=== PATIENT | female | born 1990 | race Caucasian/White ===

== ENCOUNTER → 2019-04-20 | Outpatient (CLI) | payer BC ==
[~2019-04-20] MED LIST: BENZ100C18 PO; CEFD300C3 PO
--- NOTE | 2019-04-20 10:41 | Diagnostic Imaging Report ---
PROCEDURE: US Gallbladder. TECHNIQUE: Multiple real-time grayscale images were obtained over the right upper quadrant in various projections. INDICATION: Right upper quadrant pain. Patient is currently 13 weeks . FINDINGS: Liver is normal in size without focal lesions. There is no biliary ductal dilatation. Common bile duct measures 4 mm. There is no cholelithiasis, gallbladder wall thickening or pericholecystic fluid. The tail of the pancreas is obscured by bowel gas. The visualized portions of pancreas are unremarkable. Right kidney is normal. There is no ascites. IMPRESSION: Unremarkable right upper quadrant ultrasound. Dictated by: Dictated on workstation # [id number]
== END ==
LOC: RAD 09:04
PROVIDERS: ATTEND Obstetrics & Gynecology
DX: R10.11 Right upper quadrant pain (principal)
CPT/HCPCS: 76705

== ENCOUNTER 2019-05-01 13:12 | Day surgery (SDC) | payer BC ==
[2019-05-01] VITALS (20 sets, daily range): BP systolic 52–148; BP diastolic 0–106
[~2019-05-01] VITALS: Ht 167.6 cm; Wt 62.6 kg
--- NOTE | 2019-05-01 13:00 | NUR ---
MICHAEL PARRISH admitted to [facility] room 3304-1, for procedure DILATION AND CURETTAGE with an admitting diagnosis of , on 05/01/19 via , accompanied by . MICHAEL PARRISH oriented to area. Call light given and gown provided. Belongings to . Admission assessment and physical assessment complete.
--- NOTE | 2019-05-01 13:15 | NUR ---
INITIAL ASSESSMENT COMPLETED, VSS, SEE INTERVENTIONS FOR DETAILED ASSESSMENTS, PLAN OF CARE EXPLAINED, QUESTIONS ANSWERED, S/O AT SIDE, BOTH PARENTS TEARFUL. NO DISTRESS NOTED. WILL MONITOR.
[2019-05-01] MEDS ORDERED: LACTATED RINGERS 1,000 ML IV ONE ×2 (13:25→19:01)
[2019-05-01] MEDS: LACTATED RINGERS 1,000 ML IV SCH ×4 (13:40→20:20)
--- NOTE | 2019-05-01 13:40 | NUR ---
IV STARTED BY LUANNE CHARLES.
--- NOTE | 2019-05-01 14:15 | NUR ---
ANESTHESIA HERE VISITING WITH PT AND S/O.
[2019-05-01] MEDS ORDERED: PREN1TAB79 PO (14:23)
[2019-05-01 14:25] LABS: BASOPHILS % (AUTO) 0 % (0-10); EOSINOPHILS # (AUTO) 0.1 10^3/uL (0.0-0.3); EOSINOPHILS % (AUTO) 1 % (0-10); HEMATOCRIT 36 % (35-52); HEMOGLOBIN 12.3 G/DL (11.5-16.0); LYMPHOCYTES # (AUTO) 1.6 X 10^3 (1.0-4.0); LYMPHOCYTES % (AUTO) 19 % (12-44); MEAN CORPUSCULAR HEMOGLOBIN 30 PG (25-34); MEAN CORPUSCULAR HGB CONC 34 G/DL (32-36); MEAN CORPUSCULAR VOLUME 89 FL (80-99); MONOCYTES # (AUTO) 0.4 X 10^3 (0.0-1.0); MONOCYTES % (AUTO) 5 % (0-12); NEUTROPHILS # (AUTO) 6.5 X 10^3 (1.8-7.8); NEUTROPHILS % (AUTO) 76 % (42-75); PLATELET COUNT 267 10^3/uL (130-400); RED CELL DISTRIBUTION WIDTH 13.1 % (10.0-14.5); WHITE BLOOD COUNT 8.6 10^3/uL (4.3-11.0)
--- NOTE | 2019-05-01 15:30 | NUR ---
THIS RN VISITED WITH BOTH PT/SO EXTENSIVELY ABOUT DILATION AND CURETTAGE PROCEDURE, QUESTIONS ANSWERED. OR CONSENT SIGNED. VSS.
--- NOTE | 2019-05-01 16:00 | NUR ---
DR DAMICO CALLED NEW ORDERS RECEIVED.
--- NOTE | 2019-05-01 16:15 | NUR ---
SONO HERE FOR CONFIRMATION OF DEMISE, CONFIRMED BY SONO, PAPERWORK EXPLAINED WITH PARENTS ABOUT CARE OF REMAINS, PARENTS DECIDED ON PLAN AND PAPERWORK SIGNED AND ON CHART.
[2019-05-01] MEDS ORDERED: HYDROmorphone 2 MG/ML VIAL (DILAUDID) ONE (16:36)
[2019-05-01] MEDS ORDERED: MEPERIDINE (DEMEROL) INJ 50 MG/ML ONE (16:36)
[2019-05-01] MEDS ORDERED: ONDANSETRON 4 MG/2 ML (SDV) Z0FRAN ONE ×3 (16:37→18:47)
[2019-05-01] MEDS ORDERED: PROMETHAZINE INJ 25 MG/ML (PHENERGAN) AMP ONE (16:37)
[2019-05-01] MEDS ORDERED: morphine INJ 10 MG/ML 1ML (SYR OR VIAL) ONE (16:37)
[2019-05-01] MEDS ORDERED: ceFAZolin INJECTION 1,000 MG in WATER (STERILE) FOR INJECTION 10 ML IV ONE (17:00)
[2019-05-01] MEDS ORDERED: KETOROLAC 15 MG/ML VIAL IVP NR (17:00)
[2019-05-01] MEDS ORDERED: KETOROLAC 15 MG/ML VIAL ONE (17:00)
--- NOTE | 2019-05-01 17:00 | NUR ---
PT C/O HEADACHE, CALLED, NEW ORDERS RECEIVED.
--- NOTE | 2019-05-01 17:10 | NUR ---
TORADOL 15MG GIVEN SIVP. DR DAMICO HERE.
[2019-05-01] MEDS ORDERED: LIDOCAINE PF 2% 5 ML (XYLOCAINE) VIAL ONE (17:14)
[2019-05-01] MEDS ORDERED: fentaNYL INJECTION 100 MCG/2 ML AMP ONE (17:14)
[2019-05-01] MEDS ORDERED: proPOfol 200 MG/20 ML (DIPRIVAN) VIAL IV ONE (17:14)
--- NOTE | 2019-05-01 17:14 | History & Physical ---
History and Physical Date Seen by Provider: May 01, 2019 Time Seen by Provider: 17:09 This patient is a 29-year-old G1 white female with an EDC of 12 2219 putting her at 15-1/7 weeks' gestation on this date. No heart rate was detectable either by Doppler or by ultrasound. This is been reconfirmed on second ultrasound. Viable confirmed as early as 7 weeks gestation reconfirmed at 10-5/7 weeks gestation when lab work obtained that were all normal. Patient was given options for management of demise including observation versus recheck in 1 week versus proceed with D&E. After confirmation of the baby demise she elected to proceed with D&E. Surgical risks complications recover and follow-up were fully discussed with the patient. She accepts those risks and is ready to proceed. Allergies are none Medications are vitamins Medical surgical social history are per the patient's H&P November 14, 2018 HEENT exam is normal Neck is supple no lymphadenopathy no thyromegaly Abdomen is soft nontender nondistended extremities show no clubbing cyanosis. There is no Homans sign. Pelvic exam is deferred Laboratory Tests Test 05/01/19 13:40 Range/Units White Blood Count 8.6 4.3-11.0 10^3/uL Red Blood Count 4.06 L 4.35-5.85 10^6/uL Hemoglobin 12.3 11.5-16.0 G/DL Hematocrit 36 35-52 % Mean Corpuscular Volume 89 80-99 FL Mean Corpuscular Hemoglobin 30 25-34 PG Mean Corpuscular Hemoglobin Concent 34 32-36 G/DL Red Cell Distribution Width 13.1 10.0-14.5 % Platelet Count 267 130-400 10^3/uL Mean Platelet Volume 10.0 7.4-10.4 FL Neutrophils (%) (Auto) 76 H 42-75 % Lymphocytes (%) (Auto) 19 12-44 % Monocytes (%) (Auto) 5 0-12 % Eosinophils (%) (Auto) 1 0-10 % Basophils (%) (Auto) 0 0-10 % Neutrophils # (Auto) 6.5 1.8-7.8 X 10^3 Lymphocytes # (Auto) 1.6 1.0-4.0 X 10^3 Monocytes # (Auto) 0.4 0.0-1.0 X 10^3 Eosinophils # (Auto) 0.1 0.0-0.3 10^3/uL Basophils # (Auto) 0.0 0.0-0.1 10^3/uL Patient's blood type is Rh+ from lab work performed in my clinic Assessment and plan demise at 15 weeks gestation. Sonographic estimated gestational age in my clinic was 13 weeks. Planproceed with D&E in the operating room. Missed / demise at 15-1/7 weeks gestation Allergies and Home Medications Allergies Coded Allergies: No Known Drug Allergies (Unverified , 06/07/16) Home Medications Vit W-Ca,Fe,FA(<1 mg) 1 Each Tablet, 1 TAB PO DAILY, (Reported) Patient Home Medication List Home Medication List Reviewed: Yes ANAMARIA DAMICO MD May 01, 2019 17:14
[2019-05-01] MEDS ORDERED: PROMETHAZINE INJ 25 MG/ML (PHENERGAN) AMP IM ONE (17:15)
[2019-05-01] MEDS ORDERED: oxyCODONE/APAP 5/325MG (PERCOCET 5) TABLET PO PRN (17:15)
[2019-05-01] MEDS ORDERED: ONDANSETRON 4 MG/2 ML (SDV) Z0FRAN IVP PRN (17:15)
[2019-05-01] MEDS ORDERED: KETOROLAC 30 MG/ML VIAL IVP ONE (17:15)
[2019-05-01] MEDS ORDERED: MIDAZOLAM 2 MG/2 ML (VERSED) VIAL ONE (17:15)
[2019-05-01] MEDS ORDERED: D5 LR IV SOLUTION 1,000 ML IV SCH (17:15)
[2019-05-01] MEDS ORDERED: SEVOFLURANE (ULTANE) 15 ML INHAL SOLN ONE ×3 (17:16→18:33)
[2019-05-01] MEDS ORDERED: IBUP-1780 PO (17:18)
[2019-05-01] MEDS ORDERED: OXYC1TAB87 PO (17:18)
--- NOTE | 2019-05-01 17:20 | Discharge Instructions ---
Discharge Instructions Discharge Medications New, Converted or Re-Newed RX: RX on Chart Patient Instructions Patient Instructions: As directed Return to The Hospital For: As directed Activity & Diet Discharge Diet: No Restrictions Activity as Tolerated: No Orders-Post D/C & Referrals Follow Up Appt: Call to make follow up appt. for patient in 2 weeks. Activity: Rest for 24 hours, than as tolerated. Please call in RX to patient pharmacy. Diet: As tolerated-Clear Liquids only if nauseated. may shower or tub bathe as desired. No driving for 24 hours, no alcoholic beverages for 24 hours, and nothing per vagina (no tampons, douching, or intercourse) for 2 weeks. Patient to return to the clinic as soon as possible for: Temperature greater than 101F, Severe Pain, Foul discharge from incision or vagina, Excessive Blee ding (more than a period). ANAMARIA DAMICO MD May 01, 2019 17:20
[2019-05-01] MEDS ORDERED: DEXAMETHASONE 10 MG/ML (DECADRON) 1 ML VIAL ONE (18:33)
[2019-05-01] MEDS ORDERED: KETOROLAC 30 MG/ML VIAL ONE (18:34)
[2019-05-01] MEDS ORDERED: PHENYLEPHRINE 100 MCG/ML 10 ML (ANESTHESIA) SYR ONE (18:35)
[2019-05-01] MEDS ORDERED: MEPERIDINE (DEMEROL) INJ 50 MG/ML IVP ONE (19:15)
[2019-05-01] MEDS ORDERED: morphine INJ 10 MG/ML 1ML (SYR OR VIAL) IVP ONE (19:15)
[2019-05-01] MEDS ORDERED: PROMETHAZINE INJ 25 MG/ML (PHENERGAN) AMP IVP ONE (19:15)
[2019-05-01 19:24] LABS: MEAN PLATELET VOLUME 9.5 FL (7.4-10.4); RED CELL DISTRIBUTION WIDTH 13.2 % (10.0-14.5); WHITE BLOOD COUNT 15.2 10^3/uL (4.3-11.0)
[2019-05-01] MEDS: MEPERIDINE (DEMEROL) INJ 100 MG/ML IM ONE ×2 (19:32→21:35)
--- NOTE | 2019-05-01 19:50 | Diagnostic Imaging Report ---
INDICATION: demise. TECHNIQUE: Multiple real-time grayscale images were obtained over the gravid uterus. COMPARISON: None. FINDINGS: There is an intrauterine in a cephalic presentation. Placenta is anterior. There appears to be normal volume amniotic fluid. There are, however, no heart tones detected. Gestational age is 15 weeks 0 days. IMPRESSION: Findings compatible with intrauterine demise. Biometrical measurements are as follows: Biparietal 2.86 cm, age 15 weeks 2 days. Head circumference 10.42 cm, age 15 weeks 0 days. Abdominal circumference 8.01 cm, age 14 weeks 3 days. Femur length 1.63 cm, age 14 weeks 6 days. Sonographic estimate age: 15 weeks 0 days. Sonographic estimated date of delivery: 10/23/2019. Estimated Weight: 103 gm (+/- 15 gm). LMP percentile: 13%. heart rate: 0 beats per minute. number: 1 of 1. Dictated by: Dictated on workstation # [id number]
--- NOTE | 2019-05-01 20:00 | NUR ---
PT TO UNIT BY BED FROM PACU. PT ALERT AND ORIENTED. DENIES ANY PAIN.
--- NOTE | 2019-05-01 20:30 | NUR ---
PT REPORTS FEELING THE NEED TO VOID. ASSISTANCE BY PACU NURSE TO GET PT UP TO BATHROOM. UPON TRANSFERRING PT TO TOILET, PT REPORTS FEELING LIGHTHEADED AND HAVING RINGING IN EARS PRIOR TO PASSING OUT. PT WAS STABILIZED BY THIS TO PREVENT FALLING WHILE 2ND RN GOES FOR W/C AND ADDITIONAL HELP. AFTER RETURNING WITH W/C PT MOVED TO W/C WITH ASSIST X3 AND PROMPTLY TAKEN TO BED. ASSIST X3 WITH MOVING TO BED. VS OBTAINED. MILD HYPOTENSION WITH NO TACHYCARDIA NOTED. PT PLACED IN [place] D/T SLOW RETURN OF ALERTNESS. 02 PLACED BY NON-REBREATHER. AFTER 2-3 MIN PT RETURNS TO RESPONSIVENESS. VAGINAL BLEEDING AT THIS TIME LIGHT.
--- NOTE | 2019-05-01 20:37 | NUR ---
called with update concerning syncope episode, vital signs. Order for repeat cbc in AM received.
--- NOTE | 2019-05-01 21:00 | NUR ---
PT SITTING UP IN BED EATING JELLO. COLOR HAS BEGIN TO RETURN TO FACE, HOWEVER LIPS REMAIN VERY PALE. PT DID NOT VOID ON LAST TRIP UP, AND STILL FEELS IF SHE NEEDS TO VOID. PT TAKEN BY W/C THIS TIME TO TOILET WITH ASSIST X3. PT TRANSFERRED TO TOILET AND BECOMES PALE. VOIDING INITIATED AND PT BEGINS TO GET LIGHTHEADED WITH RINGING EARS AGAIN. PT IMMEDIATELY TRANSFERRED TO W/C WITH VERY SHORT PERIOD OF BECOMING UNCONSCIOUS. PT IMMEDIATELY TO BED WITH ASSIST X3. LAID FLAT AND PT RETURNS TO RESPONSIVENESS. O2 ON BY NC AT 1L. WILL PROCEED WITH USE OF BED VICENTE FOR VOIDING.
--- NOTE | 2019-05-01 22:30 | NUR ---
ATTEMPTED BED VICENTE USE WITH NO SUCCESS. WILL OBTAIN BEDSIDE COMMODE.
--- NOTE | 2019-05-01 22:45 | NUR ---
BEDSIDE COMMODE OBTAINED. PT ASSISTED TO COMMODE TO VOID. PT BECAME SLIGHTLY WEAK AND LIGHTHEADED, BUT WAS ABLE TO VOID AND RETURN TO BED BEFORE LOSING CONSCIOUSNESS. WILL CONT TO MONITOR CLOSELY.
[2019-05-02] VITALS: BP 91/39
--- NOTE | 2019-05-02 | NUR ---
EASIER TRANSFER TO BEDSIDE COMMODE. PT AGAIN VOIDS WITHOUT DIFFICULTY. VAGINAL BLEEDING REMAINS LIGHT. PT SLIGHTLY PALE WITH RETURN TO BED, BUT REPORTS THIS TRIP UP BEING BETTER. WILL CONT TO MONITOR.
--- NOTE | 2019-05-02 02:30 | NUR ---
PT RESTING VERY SOUNDLY. NO S/S OF DISTRESS OR DISCOMFORT NOTED. RESP EVEN AND UNLABORED.
--- NOTE | 2019-05-02 04:00 | NUR ---
PT AWAKENED WITH NEED TO VOID. PT TO BEDSIDE COMMODE NEARLY INDEPENDENTLY. RETURNED TO BED WITHOUT DIFFICULTY.
[2019-05-02 05:00] VITALS: BP 93/47
--- NOTE | 2019-05-02 05:15 | NUR ---
PT NEED TO VOID. WILL ASSIST AMB TO BATHROOM. PT AMB WELL AND REPORTS NOT FEELING LIGHTHEADED OR DIZZY. NO BLEEDING NOTED TO PAD. PT RETURNED TO BED AMBULATORY. PT REPORTS FEELING FAIR PHYSICALLY AND FELT THE TRIP TO THE BR WENT WELL. UPON RETURNING TO BED PT BECOMES VERY TEARFUL. VERY SUPPORTIVE. PT VERBALIZES NO NEEDS FROM NURSE, SO ALLOWED TO HAVE PRIVATE TIME WITH . ASKED TO CALL IF IT IS WANTED FOR NURSE TO RETURN.
[2019-05-02 05:34] LABS: BASOPHILS % (AUTO) 0 % (0-10); EOSINOPHILS % (AUTO) 0 % (0-10); HEMATOCRIT 21 % (35-52); LYMPHOCYTES # (AUTO) 0.7 X 10^3 (1.0-4.0); LYMPHOCYTES % (AUTO) 10 % (12-44); MEAN CORPUSCULAR HEMOGLOBIN 30 PG (25-34); MEAN CORPUSCULAR HGB CONC 34 G/DL (32-36); MEAN CORPUSCULAR VOLUME 90 FL (80-99); MEAN PLATELET VOLUME 9.2 FL (7.4-10.4); MONOCYTES # (AUTO) 0.3 X 10^3 (0.0-1.0); MONOCYTES % (AUTO) 5 % (0-12); NEUTROPHILS % (AUTO) 86 % (42-75); PLATELET COUNT 240 10^3/uL (130-400); RED CELL DISTRIBUTION WIDTH 12.9 % (10.0-14.5)
--- NOTE | 2019-05-02 06:55 | OPERATIVE REPORT ---
DATE OF SERVICE: 05/01/2019 PREOPERATIVE DIAGNOSIS: A 15-week demise. POSTOPERATIVE DIAGNOSIS: A 15-week demise. OPERATIVE PROCEDURE: D and E. OPERATIVE DESCRIPTION: With the patient in the supine position under satisfactory general anesthesia, she was repositioned in dorsal lithotomy position in the [facility] stirrups and prepped and draped in the usual fashion for vaginal surgery. The patient had voided prior to coming to the operating room. Weighted speculum placed in the posterior fornix of vagina, cervix exposed and grasped anteriorly with single tooth tenaculum. Uterus was sounded to 16 cm with uterine sound. The cervix was then serially dilated with Hegar dilators to #13 Hegar. A #12 straight suction curette was then used to remove relatively large amount of trophoblastic as well as the appearing tissue and some blood clots and amniotic fluid. Ring forceps were used to remove the balance of the fetus and fragments. Multiple fragments were identified including the calvarium, chest cavity/ribs, extremities, internal organs, and multiple fragments of tissue that were not identified. Pieces were extracted individually. Periodically, the suction curettage was used to remove the blood clot that was accumulating. Additional fragments of tissue were removed as well. The tissue had a fong to atkinson appearance consistent with demise at least more than a few days prior to the discovery of the demise. The ultrasound was then used for transabdominal assessment of the uterus which appeared empty, and no further distinct tissue was apparent. The straight suction curette was used to remove some additional fragments of tissue, blood and clot. Sharp curettage was repeated and then vacuum curettage was performed. It was clear that the uterine cavity was empty. There was no blood clot or debris remaining. On completion of the procedure, there was minimal oozing from the cervical os. The tenaculum was removed from the cervix. There was no bleeding from the puncture site. Sponge and needle counts were correct. ESTIMATED BLOOD LOSS: Around 1700 mL. Procedure being complete and no significant bleeding the patient was uneventfully awakened from general anesthesia and transferred to recovery room in stable condition with plans for discharge to home. Job ID: [id number] DocumentID: [id number] Dictated Date: 05/01/2019 18:44:14 Performance Improvement Analyst Date: 05/02/2019 01:12:46 Dictated By: ANAMARIA DAMICO MD [facility]ITALFidel
--- NOTE | 2019-05-02 07:45 | NUR ---
DR. DAMICO HERE TO SEE PT.
[2019-05-02 08:00] VITALS: BP 113/52
--- NOTE | 2019-05-02 08:00 | NUR ---
A.M. ASSESSMENT COMPLETED. VSS. ASSISTED TO THE BATHROOM. MOVES WELL. NO C/O DIZZINESS. VOIDED 300 CC URINE. SCANT SPOT OF PINK BLOOD ON PAD. PERICARE WITH PAD CHANGE. PT GETTING DRESSED.
--- NOTE | 2019-05-02 08:04 | Progress Note-Standard ---
Standard Progress Note Progress Notes/Assess & Plan Date Seen by a Provider: May 02, 2019 Time Seen by a Provider: 08:02 Progress/Assessment & Plan This patient is without complaints. She's emulating, voiding, tolerating oral intake well and has good pain control. She denies chest pain, denies shortness of breath, denies nausea vomiting but denies headache, denies dizziness. She has had minimal spotting or bleeding since the procedure. Vital Signs Date Time Temp Pulse Resp B/P (MAP) Pulse Ox O2 Delivery O2 Flow Rate FiO2 05/02/19 05:00 82 18 93/47 (62) 98 Room Air 05/02/19 00:00 76 18 91/39 (56) 100 Room Air 05/01/19 22:00 98.0 74 18 86/47 (60) 98 Room Air 05/01/19 21:00 71 18 78/39 (52) 98 Room Air 05/01/19 20:45 88 Nasal Cannula 1.00 05/01/19 20:45 68 18 82/41 (55) 100 Room Air 05/01/19 20:30 64 18 82/43 (56) 98 Room Air 05/01/19 20:29 68 18 83/43 (56) 98 Room Air 05/01/19 20:19 98.2 74 18 88/50 (63) 100 Room Air 05/01/19 20:00 98.6 14 99 Room Air 05/01/19 20:00 Room Air 05/01/19 19:55 Room Air 05/01/19 19:50 17 99 Room Air 05/01/19 19:45 12 99 Room Air 05/01/19 19:40 Room Air 05/01/19 19:40 12 99 Room Air 05/01/19 19:35 14 100 OxyMask 5 05/01/19 19:30 14 100 OxyMask 5 05/01/19 19:25 12 100 OxyMask 5 05/01/19 19:25 OxyMask 5 05/01/19 19:20 14 100 OxyMask 5 05/01/19 19:15 16 100 OxyMask 5 05/01/19 19:10 OxyMask 5 05/01/19 19:10 16 100 OxyMask 5 05/01/19 19:05 14 100 OxyMask 5 05/01/19 19:00 14 100 OxyMask 5 05/01/19 18:56 OxyMask 5 05/01/19 18:56 97.8 16 100 OxyMask 5 05/01/19 15:30 98.4 80 20 113/75 (88) 99 Room Air I & O 05/02/19 07:00 Intake Total 3760 ml Output Total 1250 ml Balance 2510 ml As signs are stable. Patient's afebrile. Laboratory Tests 05/01/19 13:40 05/01/19 19:15 05/02/19 05:20 Lab is as noted. The abdomen is benign. Bowel sounds are present. Examination of clubbing cyanosis. There is no Homans sign. Assessment and plan postoperative day number 1 status post D and E for the demise at 15 weeks' gestation. She had significant blood loss and is anemic ever she is asymptomatic and declines blood transfusion at this point we will start iron supplementation and follow up in clinic. Plan is for discharge home Final Diagnosis 15 week demise ANAMARIA DAMICO MD May 02, 2019 08:04
[2019-05-02] MEDS ORDERED: FERR-84 PO (08:06)
--- NOTE | 2019-05-02 08:15 | NUR ---
VISITORS HERE PRAYING WITH PT. PT DOING BETTER AT THIS TIME.
--- NOTE | 2019-05-02 08:50 | NUR ---
DISCHARGE INSTRUCTIONS REVIEWED WITH COPY TO PT. STATES UNDERSTANDING OF ALL INSTRUCTIONS AND NEED TO F/U SCHEDULED AND NEEDED.
[2019-05-02 09:05] VITALS: BP 113/52
--- NOTE | 2019-05-02 09:05 | NUR ---
DISMISSED VIA W/C FROM [facility] IN STABLE CONDITION ACC BY JOSE ENRIQUE AND CLARA CHARLES.
== END 2019-05-02 09:05 | disposition home or self-care (01) ==
LOC: WS 13:12 → SDC 13:12
PROVIDERS: ATTEND Obstetrics & Gynecology
DX: O02.1 Missed abortion (principal); D62 Acute posthemorrhagic anemia
CPT/HCPCS: 36415; 76805; 85025; 85027; 86850; 86900; 86901; 86920; 87081; 88305

== ENCOUNTER 2020-02-14 06:59 | Day surgery (SDC) | payer BC ==
[~2020-02-14] VITALS: Ht 160 cm; Wt 60.0 kg
[2020-02-14] VITALS (10 sets, daily range): BP systolic 103–119; BP diastolic 59–80
[~2020-02-14 06:59] MED LIST changes: +FERR-84 PO; +IBUP-1780 PO; +OXYC1TAB87 PO; +PREN1TAB79 PO
--- OUTSIDE RECORDS SUMMARY | 2020-02-14 07:04 | XMS REPORT ---
Author Author [employer] Organization [employer] Address [address] [address] Care Team Providers Care Candle Cutter Name Role Phone ANGELITO DAMICO Unavailable ANGELITO DAMICO MD Unavailable Unavailable LEISURE, LYNIETA Unavailable Unavailable BROWN, LUCINA Unavailable Unavailable BROWN, LUCINA Unavailable Unavailable OFELIA SRINIVASAN DO Unavailable Unavailable Allergies Normalized Allergy Reported Date of Reaction(s) Care Provider Facility Allergy Type classification allergen Allergy Onset DA (7 Unclassified No Known Drug 06-07-2016 - no information OFELIA SRINIVASAN DO Not Available sources.) Allergies ([id number]) Medications Medication Ingredient Drug Dose Dates Status Sig Sig Care Class(es) (Normalized) (Original) Provid er acetaminoph Acetaminoph Opioid 05-01-20 Complete take 1 Oxycodon e Angelito en 325 mg / en / Agonist 19 d tablet by Hcl/Acetamin G oxyCODONE oxyCODONE mouth every ophen Higgin hydrochlori four hours (Percocet botham de 5 mg as needed 5-325 Mg (no oral tablet for pain, Tablet) 1 phone) (1 source.) then take 1 Each Tablet tablet by 1 Tab ORAL mouth as Every 4HRS needed for as needed pain for Pain-Moderat e 10 Tab 05/01/19 no Albuterol beta2-Adren 11-01-19 no no no no information ergic 20 - informat information information name (1 source.) Agonist 11-01-19 ion (no 20 phone) ferrous ferrous no 325 mg 05-02-20 Complete take 1 Ferrous Angelito sulfate 325 sulfate information 19 d tablet by Sulfate G mg oral mouth once (Iron) 325 Higgin tablet (1 daily Mg Tablet botham source.) 325 Mg ORAL (no Daily 30 Tab phone) 05/02/19 325 mg 05-02-2019 Completed take 1 Ferrous Angelito G tablet Sulfate Higginbo by (Iron) malou (no mouth 325 Mg phone) once Tablet daily 325 Mg ORAL Daily 30 Tab 05/02/19 ibuprofen Ibuprofen Nonsteroida 800 mg 05-01-20 Complete take 1 Ibuprofen Angelito 800 mg oral l 19 d tablet by 800 Mg G tablet (1 Anti-inflam mouth every Tablet 800 [facility] source.) matory Drug six hours as Mg ORAL botham needed for Every 6 (no pain Hours as phone) needed for Pain 60 Tab 05/01/19 no no Complete take 1 Vit (no information Vit information d tablet by W-Ca,Fe,Fa ( phone) (1 source.) W-Ca,Fe,Fa( mouth once 1 Tab ORAL <1 Mg) daily Daily ( Vitamins) 1 Each Tablet Problems Active Problems Problem Normalized Date of Normalized Normalized Provider Fac ility Classification Problem(s) Problem Problem Problem Sta tus Onset/Resoluti Duration on Acute Acute Episodic Active ANGELITO [facility] Via posthemorrhagi posthemorrhagi Britney DAMICO c anemia (1 c anemia [facility] - source.) [place] ([id number]) Influenza (10 Influenza due Episodic Active LYNIETA Hosp ital sources.) to other LEISURE [facility] of identified [facility] ([id number]) virus with other respiratory manifestations Translations: [ INFLUENZA WITH OTHER RESPIRATORY MANIFESTATIONS ] Other Missed Episodic Active ANGELITO [facility] Via complications Britney DAMICO of [facility] - (1 source.) [place] ([id number]) Abdominal pain Right lower Episodic Active ANGELITO [facility] V ia (5 sources.) quadrant pain Britney DAMICO Translations: [facility] - [ RIGHT UPPER [place] QUADRANT PAIN] ([id number]) Past or Other Problems Problem Normalized Date of Normalized Normalized Provider Fac ility Classification Problem(s) Problem Problem Problem Sta tus Onset/Resoluti Duration on Acute Acute Episodic Completed OFELIA ZARINA , DO [facility] Via bronchitis (2 bronchitis, Britney sources.) unspecified [facility] - [place] ([id number]) Unclassified no information no information no information FELICITY S [facility] Via (1 source.) [facility] [id number] [place] [address] ([id number]) Procedures Procedure Normalized Procedure Procedure Result Performer Facility Date 05-01-2019 Dilation and curettage no information ANGELITO HUANG INBOTHAM [facility] ([id number]) 04-21-2019 Ultrasonography of no information ANGELITO LOPEZBO MALOU [facility] Via [facility] abdomen [facility] ([id number]) 04-21-2019 Ultrasonography of no information ANGELITO WESTFALL [facility] bilateral kidneys [facility] ([id number]) 05-01-2019 Ultrasound scan - no information ANGELITO AYON [facility] obstetric [facility] ([id number]) 04-20-2019 US scan of gallbladder no information ANGELITO HUANG INBOTHAM [facility] ([id number]) Immunizations Normalized Immunization Date Notes Care Provider Facili ty Immunization vaccine no information ANGELITO DAMICO [facility] Via Translations: [ [address] [facility] vaccine] ([id number]) Results Test Name Value Interpretation Reference Range Date Time Fa cility (Normalized) (Normalized) (Medline Reference) No panel information on 2019-11-01 FLUAV and FLUBV no information (no code) 11-01-2019 Hospita l Ag IA.rapid Nom 09:44-0500 [facility] (Nose) [facility] ([id number]) S. pyogenes DNA no information (A) 11-01-2019 Hospita l GISSELLE+probe Ql 09:44-0500 [facility] (Throat) [facility] ([id number]) venous blood hemoglobin measurement (mass/volume) on 2019-05-02 Hemoglobin (Bld) 7.0 g/dL (L) 12.1 - 17.2 g/dL Asc ension Via [Mass/Vol] [facility] ([id number]) blood monocytes/100 leukocytes on 2019-05-02 Monocytes/100 5 % (no code) 2 - 8 % Foster Vi a WBC (Bld) [facility] ([id number]) blood monocytes automated count (number/volume) on 2019-05-02 Monocytes (Bld) 0.3 10*3/uL (no code) 0.3 - 0.9 Foster Via [#/Vol] 10*3/uL [facility] ([id number]) blood hematocrit (volume fraction) on 2019-05-02 Hematocrit (Bld) 21 % (L) 36.1 - 50.3 % Ascens ion Via [Volume [facility] fraction] ([id number]) blood erythrocytes automated count (number/volume) on 2019-05-02 RBC (Bld) 2.30 10*6/uL (L) 4.2 - 6.1 Foster Via [#/Vol] 10*6/uL [facility] ([id number]) automated erythrocyte mean corpuscular volume (mcv) measurement on 2019-05-02 MCV (RBC) 90 fL (no code) 80 - 100 fL Foster Via [Entitic vol] [facility] ([id number]) automated erythrocyte mean corpuscular hemoglobin concentration measurement (mass/volume) on 2019-05-02 MCHC (RBC) 34 g/dL (no code) 32 - 36 g/dL Foster Vi a [Mass/Vol] [facility] ([id number]) automated erythrocyte mean corpuscular hemoglobin (mass per erythrocyte) on 2019-05-02 MCH (RBC) 30 pg (no code) 27 - 31 pg Foster Via [Entitic mass] [facility] ([id number]) automated erythrocyte distribution width ratio on 2019-05-02 Erythrocyte 12.9 % (no code) 11.6 - 14.6 % Foster V ia distribution [facility] width (RBC) ([id number]) [Ratio] automated eosinophil count on 2019-05-02 Eosinophils 0.0 10*3/uL (no code) 0.05 - 0.5 Foster Via (Bld) [#/Vol] 10*3/uL [facility] ([id number]) automated blood platelet mean volume measurement on 2019-05-02 Platelet mean 9.2 fL (no code) 7.2 - 11.7 fL Foster Via volume (Bld) [facility] [Entitic vol] ([id number]) automated blood platelet count (count/volume) on 2019-05-02 Platelets (Bld) 240 10*3/uL (no code) 150 - 450 Foster Via [#/Vol] 10*3/uL [facility] ([id number]) automated blood neutrophils/100 leukocytes on 2019-05-02 Neutrophils/100 86 % (H) 40 - 60 % Foster Via WBC (Bld) [facility] ([id number]) automated blood neutrophil count (number/volume) on 2019-05-02 Neutrophils 6.0 10*3/uL (no code) 1.7 - 7 10*3/uL Foster Via (Bld) [#/Vol] [facility] ([id number]) automated blood lymphocytes/100 leukocytes on 2019-05-02 Lymphocytes/100 10 % (L) 20 - 40 % Foster Via WBC (Bld) [facility] ([id number]) automated blood lymphocyte count (number/volume) on 2019-05-02 Lymphocytes 0.7 10*3/uL (L) 0.9 - 2.9 Foster Via (Bld) [#/Vol] 10*3/uL [facility] (74143) automated blood leukocyte count (number/volume) on 2019-05-02 WBC (Bld) 7.0 10*3/uL (no code) 3.5 - 10.5 Foster Via [#/Vol] 10*3/uL [facility] ([id number]) automated blood eosinophils/100 leukocytes on 2019-05-02 Eosinophils/100 0 % (no code) 1 - 4 % Foster Via WBC (Bld) [facility] ([id number]) automated blood basophils/100 leukocytes on 2019-05-02 Basophils/100 0 % (no code) 0.5 - 1 % Foster Vi a WBC (Bld) [facility] ([id number]) automated blood basophil count (number/volume) on 2019-05-02 Basophils (Bld) 0.0 10*3/uL (no code) 0 - 0.3 10*3/uL Ascen gretel Via [#/Vol] [facility] ([id number]) Vital Signs The data below is from unstructured sources Vital Response Date/Time Temperature (Fahrenheit) 98.2 degree s F (97.6 - 99.5) 06/07/2016 8:14pm Temperature (Calculated Celsius) 36. 79403 degrees C (36.4 - 37.5) 06/07/2016 8:14pm Temperature Source Tympanic 06/07/2016 8:14pm Pulse Rate (adult) 69 bpm (60 - 90) 06/07/2016 8:14pm Respiratory Rate 18 bpm (12 - 24) 06/07/2016 8:14pm O2 Sat by Pulse Oximetry 99 % (88 - 100) 06/07/2016 8:14pm Blood Pressure 119/88 mm Hg 06/07/2016 8:14pm Blood Pressure Mean 98 mm Hg 06/07/2016 8:14pm Pain Numeric Pain Scale 7 8:14pm Height (Feet) 5 feet 05/2016 8:14pm Height (Inches) 3 inches 06/07/2016 8:14pm Height (Calculated Centimeters) 160. 779149 cm 06/07/2016 8:14pm Weight (Pounds) 129 pounds 06/07/2016 8:14pm Weight (Calculated Kilograms) 58.513 416 kilograms 06/07/2016 8:14pm Capillary Refill Capillary Refill Less Than 3 Seconds 06/07/2016 8:14pm Height 5 ft 3 in Weight 129 lb Body Mass Index 22.9 kg/m^2 Vital Response Date/Time Temperature (Fahrenheit) 98.5 degree s F (97.6 - 99.5) 05/02/2019 9:05am Temperature (Calculated Celsius) 36. 42300 degrees C (36.4 - 37.5) 05/02/2019 8:00am Temperature Source Temporal 05/02/2019 9:05am Pulse Rate (adult) 87 bpm (60 - 90) 05/02/2019 9:05am Respiratory Rate 18 bpm (12 - 24) 05/02/2019 9:05am O2 Sat by Pulse Oximetry 99 % (88 - 100) 05/02/2019 9:05am Blood Pressure 113/52 mm Hg 05/02/2019 9:05am Blood Pressure Mean 72 mm Hg (65 - 110) 05/02/2019 8:00am Pain Numeric Pain Scale 0-No Pain 05/02/2019 9:05am Height (Feet) 5 feet 11/2018 2:26pm Height (Inches) 6.00 inches 05/01/2019 2:26pm Height (Calculated Centimeters) 167. 343070 cm 05/01/2019 2:26pm Weight (Pounds) 138 pounds 05/01/2019 2:26pm Weight (Ounces) 0.0 oz 0 05/01/2019 2:26pm Weight (Calculated Grams) 74080.75 gm 05/01/2019 2:26pm Weight (Calculated Kilograms) 62.595 748 kilograms 05/01/2019 2:26pm Calculated BMI 22.3 11/2018 2:26pm Weight Measurement Method Standing Scale 05/01/2019 2:26pm Vital Response Date/Time Temperature (Fahrenheit) 98.5 degree s F (97.6 - 99.5) 05/02/2019 9:05am Temperature (Calculated Celsius) 36. 28611 degrees C (36.4 - 37.5) 05/02/2019 8:00am Temperature Source Temporal 05/02/2019 9:05am Pulse Rate (adult) 87 bpm (60 - 90) 05/02/2019 9:05am Respiratory Rate 18 bpm (12 - 24) 05/02/2019 9:05am O2 Sat by Pulse Oximetry 99 % (88 - 100) 05/02/2019 9:05am Blood Pressure 113/52 mm Hg 05/02/2019 9:05am Blood Pressure Mean 72 mm Hg (65 - 110) 05/02/2019 8:00am Pain Numeric Pain Scale 0-No Pain 05/02/2019 9:05am Height (Feet) 5 feet 11/2018 2:26pm Height (Inches) 6.00 inches 05/01/2019 2:26pm Height (Calculated Centimeters) 167. 233122 cm 05/01/2019 2:26pm Weight (Pounds) 138 pounds 05/01/2019 2:26pm Weight (Ounces) 0.0 oz 0 05/01/2019 2:26pm Weight (Calculated Grams) 11685.75 gm 05/01/2019 2:26pm Weight (Calculated Kilograms) 62.595 748 kilograms 05/01/2019 2:26pm Calculated BMI 22.3 11/2018 2:26pm Weight Measurement Method Standing Scale 05/01/2019 2:26pm Interventions No Information Plan of Treatment The data below is from unstructured sources Discharge Date 06/07/16 9:11pm Disposition 01 HOME, SELF-CARE Condition at Discharge Stable Instructions/Education Provided Phar yngitis (ED) Upper Respiratory Infection (ED) Acute Bronchitis (ED) Prescriptions See Medication Section Referrals ANGELITO DAMICO MD - Primary Care Physician Additional Instructions/Education LO TS OF CLEAR LIQUIDS TYLENOL 1 GRAM / MOTRIN 800 MG 4 TIMES A DAY NEEDED FOR PAIN OR FEVER CONTINUE SUDAFED FOR CONGESTION ROBITUSSIN DM FOR COUGH FOLLOW UP WITH OF GILBERT IN 2-3 DAYS IF NO BETTER All discharge instructions reviewed with patient and/or family. Voiced understanding. Discharge Date 05/02/19 9:05am Instructions/Education Provided Deal ing With Miscarriage Dilation and Curettage (DC) Prescriptions See Medication Section Discharge Date 05/02/19 9:05am Instructions/Education Provided Deal ing With Miscarriage Dilation and Curettage (DC) Prescriptions See Medication Section Goals No Information Social History No Information Functional Status The data below is from unstructured sources Query Response Date Jimmy rded Comprehension Ability Understands Co ncepts May 01, 2019 8:45pm Mental Status No Information Encounters Encounter Normalized Encounter Encounter Diagnosis Care Provi yuki Organization Date Type 05-01-2019 Admission to day no information ANGELITO G ENRIQUETASAGAR AM no organization name - surgery Work Phone: (no phone) 05-02-2019 06-07-2016 Emergency department no information no name (no candie ne) no organization name - patient visit (no phone) 06-07-2016 11-01-2019 Patient encounter no information no name (no phone) no organization name - procedure (no phone) 11-01-2019 05-01-2019 Patient encounter no information no name (no phone) no organization name - procedure (no phone) 05-02-2019 04-21-2019 Patient encounter no information ANGELITO AYON no organization name procedure Work Phone: (no phone) 04-21-2019 Patient encounter no information no name (no phone) no organization name procedure (no phone) 04-20-2019 Patient encounter no information ANGELITO AYON no organization name procedure Work Phone: (no phone) 04-20-2019 Patient encounter no information no name (no phone) no organization name procedure (no phone) Medical Equipment No Information Payers Normalized Payer Value [facility] no information Advance Directives Directive Response Recor ded Date/Time Advance Directives No 8:14pm Resuscitation Status Full Code 06/07/16 8:14pm Directive Response Recor ded Date/Time Advance Directives No 2:32pm Resuscitation Status Full Code 05/01/19 2:32pm Discharge Instructions No hospital discharge instructions.No hospital discharge instruction information available. Additional Source Comments This clinical document has been generated using Everlater software that has been certified by the Office of the National Coordinator for Health Information Technology (ONC 15.99.04.3023.Diam.31.00.0.916002) and the National Committee for Appeals Manager (NCQA, as an eMeasure certified technology). FOR RECORDS PERTAINING TO PATIENTS WHO ARE OR HAVE BEEN ENROLLED IN A CHEMICAL D EPENDENCY/SUBSTANCE ABUSE PROGRAM, SOME INFORMATION MAY BE OMITTED. This clinica l summary was aggregated from multiple sources. Caution should be exercised in using it in the provision of clinical care. This summary normalizes information from multiple sources, and as a consequence, information in this document may ma terially change the coding, format and clinical context of patient data. In radha tion, data may be omitted in some cases. CLINICAL DECISIONS SHOULD BE BASED ON T HE PRIMARY CLINICAL RECORDS. [facility]. provides no warranty or guara ntee of the accuracy or completeness of information in this document.The followi ng information is based on time limited clinical information
--- OUTSIDE RECORDS SUMMARY | 2020-02-14 07:04 | XMS REPORT | Continuity of Care Document ---
Author Organization Unknown Address Unknown Phone Unavailable Allergies Active Description Code Type Severity Reaction Onset Reported/Identified Relationship to Patient Clinical Status Yes NO KNOWN DRUG ALLERGIES UNKNOWN UNKNOWN Yes No Known Drug Allergies [id number] Drug Allergy Unknown N/A 06/07/2016 Medications Medication Packaging Start Date St op Date Route Dosage Sig ALBUTEROL SVN 2.5MG/3CC LIQ 2.5 MG (PROVENTIL LILLIAN 2.5MG/3CC) MG 11/01/2019 11/01/2019 [id number] Problems Date Dx Coded Attending Type Code Diagnosis Diagnosed By 10/31/2014 Ot 626.9 06/07/2016 Ot 626.9 MENS TRUAL DISORDER NOS 06/07/2016 ZARINA DO OFELIA K Ot J02.9 ACUTE PHARYNGITIS, UNSPECIFIED 06/07/2016 ZARINA , OFELIA K Ot J06.9 ACUTE UPPER RESPIRATORY INFECTION, UNSPE 06/07/2016 ZARINA , OFELIA K Ot J20.9 ACUTE BRONCHITIS, UNSPECIFIED 06/08/2016 Ot 626.9 MENS TRUAL DISORDER NOS 06/09/2016 ZARINA DO OFELIA K Ot J02.9 ACUTE PHARYNGITIS, UNSPECIFIED 06/09/2016 ZARINA DO OFELIA K Ot J06.9 ACUTE UPPER RESPIRATORY INFECTION, UNSPE 06/09/2016 ZARINA DO OFELIA K Ot J20.9 ACUTE BRONCHITIS, UNSPECIFIED 06/09/2016 ZARINA , OFELIA K Ot J02.9 ACUTE PHARYNGITIS, UNSPECIFIED 06/09/2016 ZARINA DO OFELIA K Ot J06.9 ACUTE UPPER RESPIRATORY INFECTION, UNSPE 06/09/2016 ZARINA DO OFELIA K Ot J20.9 ACUTE BRONCHITIS, UNSPECIFIED 06/22/2016 Ot 626.9 MENS TRUAL DISORDER NOS 04/21/2019 MOOKIE YUAN, ANAMARIA Canseco Ot R10.11 RIGHT UPPER QUADRANT PAIN 04/25/2019 ANAMARIA DAMICO MD Ot R10.31 RIGHT LOWER QUADRANT PAIN 05/01/2019 MOOKIE YUAN, ANAMARIA Canseco Ot R10.31 RIGHT LOWER QUADRANT PAIN 05/02/2019 MOOKIE YUAN, ANAMARIA Canseco Ot R10.11 RIGHT UPPER QUADRANT PAIN 05/02/2019 MOOKIE YUAN, ANAMARIA Canseco Ot R10.31 RIGHT LOWER QUADRANT PAIN 05/09/2019 MOOKIE YUAN, ANAMARIA Canseco Ot D62 ACUTE POSTHEMORRHAGIC ANEMIA 05/09/2019 MOOKIE YUAN, ANAMARIA Canseco Ot O02.1 MISSED 11/01/2019 LEISURE, EDSON W 487.1 INFLUENZA WITH OTHER RESPIRATORY MANIFESTATIONS 11/01/2019 LEISURE, LYNCHAPOA W J10.1 INFLUENZA DUE TO OTHER IDENTIFIED INFLUENZA VIRUS WITH OTHER RESPIRATORY MANIFESTATIONS 11/01/2019 LEISURE, VASQUEZA W 487.1 INFLUENZA WITH OTHER RESPIRATORY MANIFESTATIONS 11/01/2019 LEISURE, VASQUEZA W J10.1 INFLUENZA DUE TO OTHER IDENTIFIED INFLUENZA VIRUS WITH OTHER RESPIRATORY MANIFESTATIONS 11/01/2019 LEISURE, VASQUEZA W 487.1 INFLUENZA WITH OTHER RESPIRATORY MANIFESTATIONS 11/01/2019 LEISURE, VASQUEZA W J10.1 INFLUENZA DUE TO OTHER IDENTIFIED INFLUENZA VIRUS WITH OTHER RESPIRATORY MANIFESTATIONS 11/01/2019 LEISURE, VASQUEZA W 487.1 INFLUENZA WITH OTHER RESPIRATORY MANIFESTATIONS 11/01/2019 LEISURE, VASQUEZA W J10.1 INFLUENZA DUE TO OTHER IDENTIFIED INFLUENZA VIRUS WITH OTHER RESPIRATORY MANIFESTATIONS Procedures There is no data. Results Test Result Range Streptococcus pyogenes antigen detection - 06/07/16 20:20 Streptococcus pyogenes antigen detection NEGATIVE NEGATIVE Bacterial throat culture - 06/07/16 20:2 0 Bacterial throat culture [facility] Complete blood count (CBC) with automate d white blood cell (WBC) differential - 05/01/19 13:40 Blood leukocytes automated count (number/volume) 8.6 10*3/uL 4.3-11.0 Blood erythrocytes automated count (number/volume) 4.06 10*6/uL 4.35-5.85 Venous blood hemoglobin measurement (mass/volume) 12.3 g/dL 11.5-16.0 Blood hematocrit (volume fraction) 36 % 35-52 Automated erythrocyte mean corpuscular volume 89 [ foz_us] 80-99 Automated erythrocyte mean corpuscular h emoglobin (mass per erythrocyte) 30 pg 25-34 Automated erythrocyte mean corpuscular h emoglobin concentration measurement (mass/volume) 34 g/dL 32-36 Automated erythrocyte distribution width ratio 13. 1 % 10.0- 14.5 Automated blood platelet count (count/volume) 267 10*3/uL 130-400 Automated blood platelet mean volume measurement 10.0 [foz_us] 7.4-10.4 Automated blood neutrophils/100 leukocytes 76 % 42-75 Automated blood lymphocytes/100 leukocytes 19 % 12-44 Blood monocytes/100 leukocytes 5 % 0-12 Automated blood eosinophils/100 leukocytes 1 % 0-10 Automated blood basophils/100 leukocytes 0 % 0-10 Blood neutrophils automated count (number/volume) 6.5 10*3 1.8-7.8 Blood lymphocytes automated count (number/volume) 1.6 10*3 1.0-4.0 Blood monocytes automated count (number/volume) 0. 4 10*3 0.0-1.0 Automated eosinophil count 0.1 10*3/uL 0 .0-0.3 Automated blood basophil count (count/volume) 0.0 10*3/uL 0.0-0.1 Blood type T Indirect antibody screen pa sarah - 05/01/19 13:40 WRISTBAND NUMBER [id number] NRG ABO+Rh group AP NRG Blood group antibody screen NEGATIVE NR G Methicillin resistant Staphylococcus aur eus (MRSA) screening culture - 05/01/19 15:35 Methicillin resistant Staphylococcus aureus (MRSA) scr eening culture NEG NRG Automated blood complete blood count (he mogram) panel - 05/01/19 19:15 Blood leukocytes automated count (number/volume) 15.2 10*3/uL 4.3-11.0 Blood erythrocytes automated count (number/volume) 2.98 10*6/uL 4.35-5.85 Venous blood hemoglobin measurement (mass/volume) 9.0 g/dL 11.5-16.0 Blood hematocrit (volume fraction) 27 % 35-52 Automated erythrocyte mean corpuscular volume 91 [ foz_us] 80-99 Automated erythrocyte mean corpuscular h emoglobin (mass per erythrocyte) 30 pg 25-34 Automated erythrocyte mean corpuscular h emoglobin concentration measurement (mass/volume) 33 g/dL 32-36 Automated erythrocyte distribution width ratio 13. 2 % 10.0- 14.5 Automated blood platelet count (count/volume) 332 10*3/uL 130-400 Automated blood platelet mean volume measurement 9.5 [foz_us] 7.4-10.4 Complete blood count (CBC) with automate d white blood cell (WBC) differential - 05/02/19 05:20 Blood leukocytes automated count (number/volume) 7.0 10*3/uL 4.3-11.0 Blood erythrocytes automated count (number/volume) 2.30 10*6/uL 4.35-5.85 Venous blood hemoglobin measurement (mass/volume) 7.0 g/dL 11.5-16.0 Blood hematocrit (volume fraction) 21 % 35-52 Automated erythrocyte mean corpuscular volume 90 [ foz_us] 80-99 Automated erythrocyte mean corpuscular h emoglobin (mass per erythrocyte) 30 pg 25-34 Automated erythrocyte mean corpuscular h emoglobin concentration measurement (mass/volume) 34 g/dL 32-36 Automated erythrocyte distribution width ratio 12. 9 % 10.0- 14.5 Automated blood platelet count (count/volume) 240 10*3/uL 130-400 Automated blood platelet mean volume measurement 9.2 [foz_us] 7.4-10.4 Automated blood neutrophils/100 leukocytes 86 % 42-75 Automated blood lymphocytes/100 leukocytes 10 % 12-44 Blood monocytes/100 leukocytes 5 % 0-12 Automated blood eosinophils/100 leukocytes 0 % 0-10 Automated blood basophils/100 leukocytes 0 % 0-10 Blood neutrophils automated count (number/volume) 6.0 10*3 1.8-7.8 Blood lymphocytes automated count (number/volume) 0.7 10*3 1.0-4.0 Blood monocytes automated count (number/volume) 0. 3 10*3 0.0-1.0 Automated eosinophil count 0.0 10*3/uL 0 .0-0.3 Automated blood basophil count (count/volume) 0.0 10*3/uL 0.0-0.1 Quik Strep - 11/01/19 14:44 Quik Strep Negative - confirmation culture set. Negative Encounters ACCT No. Visit Date/Time Discharge Status Pt. Type Provider Facility Loc./Unit Complaint [id number] 11/01/2019 14:27:00 11/01/2019 15:37 :00 DIS Outpatient EDSON WARNER [facility] ER [id number] 11/01/2019 14:45:02 Document Registration [id number] 05/01/2019 13:12:00 09:05:00 DIS Outpatient ANAMARIA DAMICO MD Via [facility] SDC DEMISE [id number] 04/21/2019 07:49:00 23:59:59 CLS Outpatient ANAMARIA DAMICO MD Via [facility] RAD RLQ PAIN [id number] 04/20/2019 09:04:00 23:59:59 CLS Outpatient ANAMARIA DAMICO MD Via [facility] RAD RUQ PAIN [id number] 06/07/2016 20:05:00 016 21:11:00 DIS Emergency OFELIA SRINIVASAN DO [facility] ER POSS STREP THROAT [id number] 11/10/2012 09:01:00 Document Registration
[2020-02-14] MEDS ORDERED: LACTATED RINGERS 1,000 ML IV PRN (07:14)
[2020-02-14] MEDS ORDERED: D5 LR IV SOLUTION 1,000 ML IV SCH (07:23)
[2020-02-14] MEDS ORDERED: OXYC1TAB87 PO (07:25)
[2020-02-14] MEDS ORDERED: IBUP-1780 PO (07:25)
--- NOTE | 2020-02-14 07:26 | Discharge Inst-Surgical ---
Discharge Inst-Surgical Depart Medication/Instructions New, Converted or Re-Newed RX: RX on Chart Consults/Follow Up Patient Instructions: as directed Orders & Referrals Follow Up Appt: Call to make follow up appt. for patient in 2 weeks. Activity: Rest for 24 hours, than as tolerated. Please call in RX to patient pharmacy. Diet: As tolerated-Clear Liquids only if nauseated. Tomorrow, may shower or tub bathe as desired. No driving for 24 hours, no alcoholic beverages for 24 hours, and nothing per vagina (no tampons, douching, or intercoarse) for 2 weeks. Patient to return to the clinic as soon as possible for: Temperature greater than 101F, Severe Pain, Foul discharge from incision or vagina, Excessive Bleeding (more than a period). Activity Activity as Tolerated: No Diet Discharge Diet: No Restrictions ANAMARIA DAMICO MD Feb 14, 2020 07:26
--- NOTE | 2020-02-14 07:28 | Progress Note-Pre Operative ---
Pre-Operative Progress Note H&P Reviewed The H&P was reviewed, patient examined and no changes noted. Date Seen by Provider: Feb 14, 2020 Time Seen by Provider: : Date H&P Reviewed: Feb 14, 2020 Time H&P Reviewed: : Pre-Operative Diagnosis: missed at 7 weeks ANAMARIA DAMICO MD Feb 14, 2020 07:28
--- NOTE | 2020-02-14 07:29 | Progress Note-Post Operative ---
Post-Operative Progess Note Surgeon (s)/Binder Cutter Hand (s) Surgeon ANAMARIA DAMICO MD Binder Cutter Hand: none Pre-Operative Diagnosis missed at 7 weeks Post-Operative Diagnosis same Procedure & Operative Findings Date of Procedure 02/14/20 Procedure Performed/Findings d&c for missed at 7 weeks gestation Anesthesia Type geta Estimated Blood Loss Estimated blood loss (mL): 100cc Specimens/Packing Specimens Removed Uterine contents/products of conception ANAMARIA DAMICO MD Feb 14, 2020 07:29
[2020-02-14] MEDS ORDERED: HYDROcodone/APAP 10 MG/325 MG (LORTAB) TAB PO PRN (07:30)
[2020-02-14] MEDS ORDERED: MEPERIDINE (DEMEROL) INJ 100 MG/ML IM ONE (07:30)
[2020-02-14] MEDS ORDERED: PROMETHAZINE INJ 25 MG/ML (PHENERGAN) AMP IM ONE (07:30)
[2020-02-14] MEDS ORDERED: ceFAZolin INJECTION 1,000 MG in WATER (STERILE) FOR INJECTION 10 ML IV ONE (07:30)
[2020-02-14] MEDS ORDERED: ONDANSETRON 4 MG/2 ML (SDV) Z0FRAN IVP PRN ×2 (07:30→09:45)
[2020-02-14] MEDS ORDERED: KETOROLAC 30 MG/ML VIAL IVP ONE (07:30)
[2020-02-14 07:44] LABS: BASOPHILS % (AUTO) 1 % (0-10); EOSINOPHILS # (AUTO) 0.2 10^3/uL (0.0-0.3); EOSINOPHILS % (AUTO) 4 % (0-10); HEMATOCRIT 41 % (35-52); HEMOGLOBIN 13.7 G/DL (11.5-16.0); LYMPHOCYTES # (AUTO) 1.3 X 10^3 (1.0-4.0); LYMPHOCYTES % (AUTO) 35 % (12-44); MEAN CORPUSCULAR HEMOGLOBIN 30 PG (25-34); MEAN CORPUSCULAR HGB CONC 34 G/DL (32-36); MEAN CORPUSCULAR VOLUME 90 FL (80-99); MEAN PLATELET VOLUME 9.8 FL (7.4-10.4); MONOCYTES # (AUTO) 0.3 X 10^3 (0.0-1.0); MONOCYTES % (AUTO) 9 % (0-12); NEUTROPHILS # (AUTO) 1.9 X 10^3 (1.8-7.8); NEUTROPHILS % (AUTO) 51 % (42-75); PLATELET COUNT 275 10^3/uL (130-400); RED CELL DISTRIBUTION WIDTH 12.4 % (10.0-14.5); WHITE BLOOD COUNT 3.7 10^3/uL (4.3-11.0)
[2020-02-14 07:57] LABS: ALBUMIN 4.1 GM/DL (3.2-4.5); CHLORIDE 106 MMOL/L (98-107); POTASSIUM 3.9 MMOL/L (3.6-5.0); SODIUM 139 MMOL/L (135-145)
[2020-02-14 08:00] LABS: GLUCOSE 93 MG/DL (70-105); TOTAL PROTEIN 6.8 GM/DL (6.4-8.2)
[2020-02-14 08:01] LABS: CARBON DIOXIDE 25 MMOL/L (21-32)
[2020-02-14 08:02] LABS: BILIRUBIN,TOTAL 0.5 MG/DL (0.1-1.0)
[2020-02-14 08:03] LABS: ALKALINE PHOSPHATASE 45 U/L (40-136); CREATININE SERUM 0.76 MG/DL (0.60-1.30); GFR ESTIMATED > 60
[2020-02-14 08:04] LABS: BUN/CREATININE RATIO 14
[2020-02-14 08:06] LABS: ALANINE AMINOTRANSFERASE 10 U/L (0-55)
[2020-02-14] MEDS ORDERED: ONDANSETRON 4 MG/2 ML (SDV) Z0FRAN ONE (08:48)
[2020-02-14] MEDS ORDERED: LIDOCAINE PF 2% 5 ML (XYLOCAINE) VIAL ONE (08:48)
[2020-02-14] MEDS ORDERED: proPOfol 200 MG/20 ML (DIPRIVAN) VIAL IV ONE (08:48)
[2020-02-14] MEDS ORDERED: MIDAZOLAM 2 MG/2 ML (VERSED) VIAL ONE (08:49)
[2020-02-14] MEDS ORDERED: fentaNYL INJECTION 100 MCG/2 ML AMP ONE (08:49)
[2020-02-14] MEDS ORDERED: SEVOFLURANE (ULTANE) 15 ML INHAL SOLN ONE ×2 (08:49→09:12)
[2020-02-14] MEDS ORDERED: KETOROLAC 30 MG/ML VIAL ONE (09:05)
[2020-02-14] MEDS ORDERED: PROMETHAZINE INJ 25 MG/ML (PHENERGAN) AMP IVP ONE (09:45)
[2020-02-14] MEDS ORDERED: MEPERIDINE (DEMEROL) INJ 50 MG/ML IVP ONE (09:45)
[2020-02-14] MEDS ORDERED: morphine INJ 10 MG/ML 1ML (SYR OR VIAL) IVP ONE (09:45)
--- NOTE | 2020-02-14 10:03 | OPERATIVE REPORT ---
DATE OF SERVICE: 02/14/2020 PREOPERATIVE DIAGNOSIS: Seven-week missed . POSTOPERATIVE DIAGNOSIS: Seven-week missed . OPERATIVE PROCEDURE: D and C for missed at seven weeks. OPERATIVE DESCRIPTION: With the patient in supine position under satisfactory general anesthesia, she was repositioned in a dorsal lithotomy position in the [facility] and prepped and draped in the usual fashion for vaginal surgery. Weighted speculum placed in posterior fornix of vagina, cervix exposed and grasped anteriorly with single tooth tenaculum. Uterus was sounded to 11 cm with the uterine sound. The cervix was then serially dilated with Marco A dilators to a #20 Marco A and then a #9 Hegar dilator was the final step in dilation. A #9 curved suction curette was introduced and endometrial cavity was curettaged with vacuum removing a large amount of trophoblastic and decidual appearing tissue, blood clot, amniotic fluid and debris. The endometrial cavity was then sharply curettaged in all 4 quadrants to good uterine cry. The curved suction curette was reintroduced. All blood clot and debris evacuated from the uterine cavity. The tenaculum was now removed. There was bleeding from both puncture sites. This was controlled with application of a silver nitrate stick. There was minimal bleeding at the cervical os. Sponge and needle counts were correct on completion of the procedure. Estimated blood loss was around 100 mL. The patient tolerated the procedure well and was uneventfully awakened from her general anesthesia and transferred to recovery room in stable condition with plans for discharge home PAR. Job ID: [id number] DocumentID: [id number] Dictated Date: 02/14/2020 09:23:38 Loss Prevention Associate Date: 02/14/2020 10:02:57 Dictated By: ANAMARIA DAMICO MD
[2020-02-14] MEDS ORDERED: HYDROcodone/APAP 10 MG/325 MG (LORTAB) TAB PO ONE (10:35)
--- NOTE | 2020-02-14 10:56 | Anesthesia-General Post-Op ---
General Patient Condition Mental Status/LOC: Same as Preop Cardiovascular: Satisfactory Nausea/Vomiting: Absent Respiratory: Satisfactory Pain: Controlled Complications: Absent Post Op Complications Complications None Follow Up Care/Instructions Patient Instructions None needed. Anesthesia/Patient Condition Patient Condition Patient is doing well, no complaints, stable vital signs, no apparent adverse anesthesia problems. No complications reported per nursing. ALEXANDRA KENYON CRNA Feb 14, 2020 10:56
== END 2020-02-14 11:30 | disposition home or self-care (01) ==
LOC: SDC 06:59
PROVIDERS: ATTEND Obstetrics & Gynecology
DX: O02.1 Missed abortion (principal); Z80.3 Family history of malignant neoplasm of breast; Z83.3 Family history of diabetes mellitus; Z82.49 Family history of ischemic heart disease and other diseases of the circulatory system
CPT/HCPCS: 36415; 80053; 85025; 86038; 86644; 86645; 86695; 86696; 86762; 86777; 86778; 87081

== ENCOUNTER 2021-09-20 19:38 | Emergency (ER) | payer BC, OTHER ==
[~2021-09-20] VITALS: Ht 160 cm; Wt 68.0 kg
--- NOTE | 2021-09-20 19:57 | ED Abdominal Pain ---
General Chief Complaint: Abdominal/GI Problems Stated Complaint: VOMITING / DIARRHEA Source of Information: Patient Exam Limitations: No Limitations History of Present Illness Date Seen by Provider: Sep 20, 2021 Time Seen by Provider: 19:54 Initial Comments to ER with vomiting and constipation. This began about 5 PM this evening with some periumbilical sharp pains. She had a few glasses of wine tonight and arrives in a wheelchair crying and requesting a glass of water. She has been taking MiraLAX for constipation without relief. She has been following with her primary care provider for her some constipation issues and is also on Linzess but she does not feel like it is helping. Has been reports she typically has at least 2 glasses of wine per day though some days she has none. Timing/Duration: 1-2 Days Severity/Quality: Cramping Radiation: No Radiation Activities at Onset: None Associated Symptoms: Denies Symptoms, Nausea/Vomiting Allergies and Home Medications Allergies Coded Allergies: No Known Drug Allergies (Unverified , 06/07/16) Patient Home Medication List Home Medication List Reviewed: Yes Ferrous Sulfate (Iron) 325 Mg Tablet, 325 MG PO DAILY Prescribed by: ANAMARIA AMBRIZ on 05/02/19 0806 Hydrocodone/Acetaminophen (Hydrocodone-Acetamin 5-325 mg) 1 Each Tablet, 1 TAB PO Q4H PRN for PAIN-MODERATE (5-7) Prescribed by: GIBSON VILLARREAL on 09/20/212113 Ibuprofen (Ibuprofen) 800 Mg Tablet, 800 MG PO Q6H PRN for PAIN Prescribed by: ANAMARIA AMBRIZ on 02/14/20 0725 Ondansetron (Ondansetron Odt) 8 Mg Tab.rapdis, 8 MG PO Q6H PRN for NAUSEA/VOMITING Prescribed by: GIBSON VILLARREAL on 09/20/212113 Oxycodone HCl/Acetaminophen (Percocet 5-325 mg Tablet) 1 Each Tablet, 1 TAB PO Q4H PRN for PAIN-MODERATE Prescribed by: ANAMARIA AMBRIZ on 02/14/20 0725 Vit W-Ca,Fe,FA(<1 mg) ( Vitamins) 1 Each Tablet, 1 TAB PO DAILY, (Reported) Entered as Reported by: DEE ROBLEDO on 05/01/19 1423 Review of Systems Review of Systems Constitutional: see HPI EENTM: No Symptoms Reported Respiratory: No Symptoms Reported Cardiovascular: No Symptoms Reported Gastrointestinal: See HPI, Abdominal Pain, Nausea, Vomiting Genitourinary: No Symptoms Reported Musculoskeletal: no symptoms reported Skin: no symptoms reported Psychiatric/Neurological: No Symptoms Reported Endocrine: No Symptoms Reported Hematologic/Lymphatic: No Symptoms Reported Past Akbw[place]-Bysmll-Bsndbo Hx Immunizations Up To Date Tetanus Booster (TDap): More than 5yrs PED Vaccines UTD: Yes Seasonal Allergies Seasonal Allergies: No Past Medical History Surgeries: Yes (DENTAL ) Respiratory: No Cardiac: No Neurological: No Reproductive Disorders: No Female Reproductive Disorders: Denies Sexually Transmitted Disease: No Gastrointestinal: No Musculoskeletal: No Endocrine: No Cancer: No Psychosocial: No Integumentary: No Blood Disorders: No Adverse Reaction/Blood Tranf: No Physical Exam Vital Signs Vital Signs - First Documented 09/20/21 19:46 Temp 36.4 Pulse 89 Resp 16 B/P (MAP) 136/93 (107) Pulse Ox 99 O2 Delivery Room Air Capillary Refill : Height/Weight/BMI Height: 5'6.00" Weight: 138lbs. 0.0oz. [id number]; 23.43 BMI Method:Stated General Appearance: WD/WN, no apparent distress, other (crying, repeatedly asking for glass of water even after we discussed that it would be a bad idea with her abdominal pain and vomiting.) Neck: non-tender, full range of motion Respiratory: no respiratory distress, no accessory muscle use Cardiovascular: regular rate, rhythm, no murmur Gastrointestinal: normal bowel sounds, soft, other (Bowel sounds are present periumbilical tenderness) Extremities: normal range of motion, non-tender Neurologic/Psychiatric: alert, oriented x 3 Skin: normal color, warm/dry Progress/Results/Core Measures Results/Orders Lab Results Laboratory Tests Test 09/20/21 19:52 09/20/21 20:15 Range/Units White Blood Count 6.5 4.3-11.0 10^3/uL Red Blood Count 4.36 3.80-5.11 10^6/uL Hemoglobin 13.3 11.5-16.0 g/dL Hematocrit 39 35-52 % Mean Corpuscular Volume 89 80-99 fL Mean Corpuscular Hemoglobin 31 25-34 pg Mean Corpuscular Hemoglobin Concent 35 32-36 g/dL Red Cell Distribution Width 12.0 10.0-14.5 % Platelet Count 346 130-400 10^3/uL Mean Platelet Volume 9.9 9.0-12.2 fL Immature Granulocyte % (Auto) 0 % Neutrophils (%) (Auto) 62 42-75 % Lymphocytes (%) (Auto) 32 12-44 % Monocytes (%) (Auto) 4 0-12 % Eosinophils (%) (Auto) 1 0-10 % Basophils (%) (Auto) 1 0-10 % Neutrophils # (Auto) 4.0 1.8-7.8 10^3/uL Lymphocytes # (Auto) 2.1 1.0-4.0 10^3/uL Monocytes # (Auto) 0.3 0.0-1.0 10^3/uL Eosinophils # (Auto) 0.1 0.0-0.3 10^3/uL Basophils # (Auto) 0.0 0.0-0.1 10^3/uL Immature Granulocyte # (Auto) 0.0 0.0-0.1 10^3/uL Prothrombin Time 12.9 12.2-14.7 SEC INR Comment 0.9 0.8-1.4 Sodium Level 141 135-145 MMOL/L Potassium Level 3.6 3.6-5.0 MMOL/L Chloride Level 108 H 98-107 MMOL/L Carbon Dioxide Level 18 L 21-32 MMOL/L Anion Gap 15 H 5-14 MMOL/L Blood Urea Nitrogen 10 7-18 MG/DL Creatinine 0.77 0.60-1.30 MG/DL Estimat Glomerular Filtration Rate 87 BUN/Creatinine Ratio 13 Glucose Level 114 H 70-105 MG/DL Calcium Level 8.8 8.5-10.1 MG/DL Corrected Calcium 8.6 8.5-10.1 MG/DL Total Bilirubin 0.2 0.1-1.0 MG/DL Aspartate Amino Transf (AST/SGOT) 18 5-34 U/L Alanine Aminotransferase (ALT/SGPT) 15 0-55 U/L Alkaline Phosphatase 50 40-136 U/L C-Reactive Protein High Sensitivity 0.09 0.00-0.50 MG/DL Total Protein 7.9 6.4-8.2 GM/DL Albumin 4.3 3.2-4.5 GM/DL Lipase 330 H 8-78 U/L Serum Test, Qualitative NEGATIVE NEGATIVE Serum Alcohol 133 H <10 MG/DL Urine Color YELLOW Urine Clarity TURBID Urine pH 5.5 5-9 Urine Specific [place] 1.020 1.016-1.022 Urine Protein NEGATIVE NEGATIVE Urine Glucose (UA) NEGATIVE NEGATIVE Urine Ketones NEGATIVE NEGATIVE Urine Nitrite NEGATIVE NEGATIVE Urine Bilirubin NEGATIVE NEGATIVE Urine Urobilinogen 0.2 < = 1.0 MG/DL Urine Leukocyte Esterase 1+ H NEGATIVE Urine RBC (Auto) NEGATIVE NEGATIVE Urine RBC NONE /HPF Urine WBC 5-10 H /HPF Urine Squamous Epithelial Cells 5-10 /HPF Urine Renal Epithelial Cells NONE /HPF Urine Crystals NONE /LPF Urine Bacteria FEW H /HPF Urine Casts NONE /LPF Urine Mucus NEGATIVE /LPF Urine Culture Indicated YES My Orders Orders - GIBSON VILLARREAL APRN Alcohol (09/20/21 19:51) Cbc With Automated Diff (09/20/21:51) Comprehensive Metabolic Panel (09/20/21:51) Ua Culture If Indicated (09/20/21:51) Ed Iv/Invasive Line Start (09/20/21:51) Hcg,Qualitative Serum (09/20/21 19:51) Ct Abdomen/Pelvis W (09/20/21 19:51) Protime With Inr (09/20/21:51) Lactated Ringers (Lr 1000 Ml Iv Solution (09/20/21 20:00) Ketorolac Injection (Toradol Injection) (09/20/21 20:00) Ondansetron Injection (Zofran Injectio (09/20/21 20:00) Lorazepam Injection (Ativan Injection) (09/20/21 20:00) Iohexol Injection (Omnipaque 350 Mg/Ml 1 (09/20/21 20:15) Received Contrast (Hold Metformin- Contr (09/20/21 20:15) Ns (Ivpb) (Sodium Chloride 0.9% Ivpb Bag (09/20/21 20:15) Lipase (09/20/21 20:14) Hs C Reactive Protein (09/20/21 20:14) Urine Culture (09/20/21 20:15) Rx-Hydrocodone/Apap 5-325 Mg (Rx-Vicodin (09/20/21 21:15) Rx-Ondansetron Po (Rx-Zofran Po) (09/20/21 21:15) Medications Given in ED Vital Signs/I&O 09/20/21 09/20/21 19:46 21:31 Temp 36.4 Pulse 89 Resp 16 79 B/P (MAP) 136/93 (107) 108/63 Pulse Ox 99 99 O2 Delivery Room Air Room Air Departure Communication (Admissions) 2008-sleeping arousable to verbal stimuli feeling better though her abdomen is still little sore. Discussed with her and her the need to avoid alcohol use. Also discussed using a clear liquid diet for the next 24 hours, plenty of fluids, nausea and pain medication to control her symptoms. Return precautions including fevers worsening pain uncontrollable vomiting. Impression Primary Impression: Pancreatitis Disposition: HOME, SELF-CARE Condition: Improved Departure-Patient Inst. Decision time for Depature: 21:10 Referrals: ANAMARIA DAMICO MD (PCP/Family) Primary Care Physician Patient Instructions: Pancreatitis Add. Discharge Instructions: 1. Your lipase was elevated at 330 which is indicative of a mild case of panc reatitis. Do clear liquids only such as juice, chicken broth, Gatorade. Use the nausea medication as needed and pain medication as prescribed for pain and nausea control. Follow-up with your doctor next week. Return to ER for any fevers, severe abdominal pain, uncontrollable nausea and vomiting. Avoid future alcohol use for several months. All discharge instructions reviewed with patient and/or family. Voiced understanding. Scripts Ondansetron (Ondansetron Odt) 8 Mg Tab.rapdis 8 MG PO Q6H PRN for NAUSEA/VOMITING, #10 TAB Prov: GIBSON VILLARREAL APRN 09/20/21 Hydrocodone/Acetaminophen (Hydrocodone-Acetamin 5-325 mg) 1 Each Tablet 1 TAB PO Q4H PRN for PAIN-MODERATE (5-7), #10 TAB Prov: GIBSON VILLARREAL APRN 09/20/21 GIBSON VILLARREAL APRN Sep 20, 2021 19:57
[2021-09-20 20:00] LABS: BASOPHILS % (AUTO) 1 % (0-10); EOSINOPHILS # (AUTO) 0.1 10^3/uL (0.0-0.3); EOSINOPHILS % (AUTO) 1 % (0-10); HEMATOCRIT 39 % (35-52); HEMOGLOBIN 13.3 g/dL (11.5-16.0); LYMPHOCYTES # (AUTO) 2.1 10^3/uL (1.0-4.0); LYMPHOCYTES % (AUTO) 32 % (12-44); MEAN CORPUSCULAR HEMOGLOBIN 31 pg (25-34); MEAN CORPUSCULAR HGB CONC 35 g/dL (32-36); MEAN CORPUSCULAR VOLUME 89 fL (80-99); MEAN PLATELET VOLUME 9.9 fL (9.0-12.2); MONOCYTES # (AUTO) 0.3 10^3/uL (0.0-1.0); MONOCYTES % (AUTO) 4 % (0-12); NEUTROPHILS % (AUTO) 62 % (42-75); PLATELET COUNT 346 10^3/uL (130-400); WHITE BLOOD COUNT 6.5 10^3/uL (4.3-11.0)
[2021-09-20] MEDS ORDERED: LORazepam INJ 2 MG/ML (ATIVAN) VIAL IVP PRN (20:00)
[2021-09-20] MEDS ORDERED: ONDANSETRON 4 MG/2 ML (SDV) Z0FRAN IVP ONE (20:00)
[2021-09-20] MEDS ORDERED: KETOROLAC 30 MG/ML VIAL IVP ONE (20:00)
[2021-09-20] MEDS ORDERED: LACTATED RINGERS 1,000 ML IV SCH (20:00)
[2021-09-20 20:10] LABS: ALBUMIN 4.3 GM/DL (3.2-4.5); POTASSIUM 3.6 MMOL/L (3.6-5.0)
[2021-09-20 20:12] LABS: CALCIUM 8.8 MG/DL (8.5-10.1)
[2021-09-20 20:13] LABS: TOTAL PROTEIN 7.9 GM/DL (6.4-8.2)
[2021-09-20 20:15] LABS: BILIRUBIN,TOTAL 0.2 MG/DL (0.1-1.0); INR 0.9 (0.8-1.4); PROTHROMBIN TIME PATIENT 12.9 SEC (12.2-14.7)
[2021-09-20] MEDS ORDERED: HOLD METFORMIN - RECEIVED CONTRAST 20 ML VIAL IV SCH (20:15)
[2021-09-20] MEDS ORDERED: IOHEXOL 350 MG/ML 100 ML (OMNIPAQUE 350) VIAL IV ONE (20:15)
[2021-09-20] MEDS ORDERED: NS 100 ML (IVPB) BAG IV ONE (20:15)
[2021-09-20 20:17] LABS: CREATININE SERUM 0.77 MG/DL (0.60-1.30)
[2021-09-20 20:24] LABS: BILIRUBIN,URINE NEGATIVE (NEGATIVE); CLARITY,URINE TURBID; COLOR,URINE YELLOW; GLUCOSE, URINE (UA) NEGATIVE (NEGATIVE); KETONES,URINE NEGATIVE (NEGATIVE); LEUKOCYTE ESTERASE ,URINE 1+ (NEGATIVE); NITRITE,URINE NEGATIVE (NEGATIVE); PH,URINE 5.5 (5-9); PROTEIN,URINE NEGATIVE (NEGATIVE)
[2021-09-20 20:37] LABS: BACTERIA,URINE FEW /HPF
--- NOTE | 2021-09-20 20:43 | Diagnostic Imaging Report ---
PROCEDURE: CT abdomen and pelvis with contrast. TECHNIQUE: Multiple contiguous axial images were obtained through the abdomen and pelvis after administration of intravenous contrast. Auto Exposure Controls were utilized during the CT exam to meet ALARA standards for radiation dose reduction. All CT scans use one or more of the following dose optimizing techniques: automated exposure control, MA and/or KvP adjustment based on patient size and exam type or iterative reconstruction. INDICATION: Abdominal pain, nausea and vomiting, diarrhea. COMPARISON: None. FINDINGS: Lung bases are clear. The heart is normal in size. The liver demonstrates no focal lesion. The spleen appears normal. The pancreas is normal. The adrenal glands appear normal. The kidneys demonstrate no abnormal enhancement or hydronephrosis. The bowel loops are nondistended without obstruction. The bowel is mostly decompressed. The appendix is normal. No free fluid or free air seen. An intrauterine device is noted. No acute osseous abnormality is seen. IMPRESSION: No acute abnormality is seen in the abdomen or pelvis. Dictated by: Dictated on workstation # [id number]
[2021-09-20] MEDS ORDERED: ONDA8TAB13 PO (21:14)
[2021-09-20] MEDS ORDERED: ACHD5005 PO (21:14)
[2021-09-20] MEDS ORDERED: RX-ONDANSETRON 4 MG ODT (ZOFRAN) PPK #4 PO STA (21:15)
[2021-09-20 21:31] VITALS: BP 108/63
== END 2021-09-20 21:31 | disposition home or self-care (01) ==
LOC: EDUNIT# 19:38 → ER 19:40
DX: K85.90 Acute pancreatitis without necrosis or infection, unspecified (principal)
CPT/HCPCS: 36415; 74177; 80053; 80320; 81000; 83690; 84703; 85025; 85610; 86141; 87088